=== PATIENT | male | born 1970 | race American Indian/Alaskan Native ===

== ENCOUNTER 2017-08-16 09:11 | Outpatient (CLI) | payer OTHER | END 2017-08-16 09:12 | disposition EMS.NT | LOC: EMS 09:11 | PROVIDERS: ATTEND Surgery | DX: S61.204A Unspecified open wound of right ring finger without damage to nail, initial encounter (principal); W24.0XXA Contact with lifting devices, not elsewhere classified, initial encounter; Y92.814 Boat as the place of occurrence of the external cause ==

== ENCOUNTER 2017-08-16 09:54 | Emergency (ER) | payer OTHER ==
[2017-08-16] MEDS: TETANUS/DIPHTHERIA/PERTUSSIS 0.5 ML SYRINGE IM ONE (12:08)
[2017-08-16] MEDS: ceFAZolin 1 GM VIAL IM STA (12:21)
[2017-08-16] MEDS: BUPIVACAINE 0.5% PF 30 ML VIAL SUBQ STA (12:22)
--- NOTE | 2017-08-16 12:25 | ED Physician Documentation ---
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 machine last 2007 Review of Systems Constitutional: denies: Fever, Chills Musculoskeletal: reports: Extremity pain Endocrine: denies: Easy bruising / bleeding Immunocompromised: denies: Immunocompromised PD PAST MEDICAL HISTORY - Past Medical History Past Medical History: Yes Psych: Anxiety - Past Surgical History Past Surgical History: Yes Ortho: Other - Present Medications Home Medications: Ambulatory Orders Medication Instructions Recorded Confirmed Cephalexin [Keflex] 500 mg PO Q6H #28 capsule 08/16/17 oxyCODONE [Roxicodone] 5 mg PO Q6H PRN #8 tablet 08/16/17 - Allergies Allergies/Adverse Reactions: Allergies Allergy/AdvReac Type Severity Reaction Status Date / Time aspirin Allergy Anaphylaxis Verified 08/16/17 10:21 ibuprofen [From Motrin] Allergy Anaphylaxis Verified 08/16/17 10:21 tree nut Allergy Hives Verified 08/16/17 10:21 - Social History Does the pt smoke?: No Smoking Status: Never smoker Does the pt drink ETOH?: Yes Does the pt have substance abuse?: No - Immunizations Immunizations are current?: Yes PD ED PE NORMAL - Vitals Vital signs reviewed: Yes - Extremities Extremities: Other (R ring finger distal phalanx crushed and macerated, flexion ext still possible and + sensation, active bleeding) Results - Vitals Vitals: Vital Signs - 24 hr 08/16/17 08/16/17 10:15 12:40 Temperature 36.5 C 37.0 C Heart Rate 65 66 Respiratory 14 17 Rate Blood Pressure 136/97 H 137/92 H O2 Saturation 97 96 Oxygen O2 Source Room air - Rads (name of study) finger Radiology: See rad report (traumatic avulsion distal R 4th finger - and per rad possible widening of scapholunate space but pt not hurting there) Procedures - Laceration (location) R finger Wound type: Stellate, Irregular, Flap, Into muscle Neurovascular status: Sensory intact, Motor intact, Vascular intact Anesthesia: Marcaine 0.5% (block with 4 cc) Wound Preparation: Irrigated copiously NS (1 L) Skin layer closure: Nylon, Size #-0 - enter number (5), Sutures - enter # (3) Other: Patient tolerated well, No complications, Neurovascular intact, Dressing applied, Tetanus booster given, Other (macerated stellate crush injury with missing tissue - unabble to close but approximated edges as best possible and applied a dressing per ortho advice) PD MEDICAL DECISION MAKING - ED course ED course: open fx / crush injury asked ortho Dr Sparrow to come see pt which he did he recommends irrigate in ED and tack down largest tissue flap and then dress and fup in office see hi consult pt understands the plan dig block with 4 cc 0.5% marcaine with no complications and good effect irrigated with a full L of sterile NS - Sepsis Event Vital Signs: Vital Signs - 24 hr 08/16/17 08/16/17 10:15 12:40 Temperature 36.5 C 37.0 C Heart Rate 65 66 Respiratory 14 17 Rate Blood Pressure 136/97 H 137/92 H O2 Saturation 97 96 Oxygen O2 Source Room air Departure - Departure Disposition: 01 Home, Self Care Clinical Impression: Crushing injury of finger of right hand Condition: Good Instructions: ED Fx Finger Open Follow-Up: [facility] [Provider Group] Prescriptions: Cephalexin [Keflex] 500 mg PO Q6H #28 capsule oxyCODONE [Roxicodone] 5 mg PO Q6H PRN #8 tablet PRN Reason: only for severe pain Comments: Leave the dressing on for the weekend Follow up with orthopedic clinic Saturday - call in the morning to schedule Take the antibiotics as prescribed Take tylenol for mild to moderate pain and only take the oxycodone if needed for very severe pain As we discussed, the tip of your finger may not be salvageable and you may end up needing a tip amputation
--- NOTE | 2017-08-16 12:59 | XRAY Report ---
Procedure Date: 08/16/2017 Accession Number: [id number] / [id number] Procedure: XR - Hand 3 View RT CPT Code: FULL RESULT: EXAM: Hand 3 View RT DATE: 08/16/2017 11:14 AM CLINICAL HISTORY: Crush injury right ring finger. Pain TECHNIQUE: 3 views COMPARISON: None FINDINGS: Avulsion fracture right fourth distal phalanx with associated soft tissue irregularity. Remainder of the right hand is unremarkable. Incidental note made of triangular fibrocartilage calcification at the wrist. Cannot exclude widening of the scapholunate distance. IMPRESSION: Traumatic avulsion injury distal right ring finger
[2017-08-16 14:38] VITALS: BP 121/92
--- NOTE | 2017-08-28 11:49 | CONSULTATION NOTE ---
DATE OF SERVICE: 08/16/2017 Physician: Martin Sparrow MD REFERRING PHYSICIAN: Tabitha Morales MD of the Emergency Department. 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 Sustained a crush injury to the tip of his finger. X-rays that were taken showed a comminuted tuft-type fracture of the distal phalanx of his finger. This was associated with a crush soft tissue injury/laceration to the tip of the finger. I have been asked to evaluate the injury to see if any treatment beyond emergency room evaluation and treatment were indicated. The patient denies any other injuries. No prior injuries to the fracture. PHYSICAL EXAMINATION: Right ring finger was examined; had a somewhat complex laceration crush-type injury to the tip of his finger. The skin flaps and tuft of the finger appear to be viable on inspection. Sensation appeared to be intact as well. Bleeding was controlled with pressure. There were no exposed bones visible. IMAGING: X-rays that were taken of the finger do show a comminuted distal tuft fracture of the ring finger. ASSESSMENT: Status post crush injury to the right dominant ring finger secondary to a crab pot line machine injury. Finger appears to be viable, and there is no exposed bone visible. PLAN: Have advised the patient under a digital block to irrigate the wound thoroughly in the emergency room. We will put one stitch to kind of hold the largest full- thickness skin flap over the tip of the finger to minimize exposure of bone subsequently. We will then dress the finger and splint the finger. We will follow up in the orthopedic clinic in 3- 5 days for a wound check. We will cover him prophylactically with antibiotics and pain medicines as needed. TD: 08/28/2017 11:09 DORY
== END 2017-08-16 14:32 | disposition home or self-care (01) ==
LOC: ED 09:54
DX: S62.634B Displaced fracture of distal phalanx of right ring finger, initial encounter for open fracture (principal); S67.194A Crushing injury of right ring finger, initial encounter; W23.1XXA Caught, crushed, jammed, or pinched between stationary objects, initial encounter; Y92.814 Boat as the place of occurrence of the external cause; Y99.0 Civilian activity done for income or pay; Z23 Encounter for immunization
CPT/HCPCS: 12001; 90471; 96372; 99283